=== PATIENT | female | born 1995 | race African-American/Black ===

== ENCOUNTER 2017-06-18 16:55 | Emergency (ER) | payer BC ==
[~2017-06-18] VITALS: Ht 180.3 cm; Wt 88.2 kg
[2017-06-18 17:01] VITALS: TEMP 36.5; Ht 180.3 cm; Wt 88.2 kg
[2017-06-18] MEDS ORDERED: SODIUM CHLORIDE 0.9% 1000ML 1,000 ML IV ONE (17:21)
[2017-06-18] MEDS ORDERED: SODIUM CHLORIDE 0.9% 1000ML 1,000 ML IV STA (17:21)
--- NOTE | 2017-06-18 17:21 | EMERGENCY ROOM VISIT NOTE ---
History Report prepared by Miguel: Tomás Bennett Under the Supervision of: Dr. Zheng Mann M.D. First contact with patient: 17:08 Chief Complaint: RAPID HEART RATE Stated Complaint: RAPID HEARTBEAT, BRAIN FOG, TINGLING FEET History of Present Illness The patient is a 21 year old female who presents to the Emergency Room with complaints of a rapid heart rate that began recently. Her heart rate is currently 98 bpm. She has a past medical history of iron deficiency anemia and panic attacks. Her first panic attack happened 1 month ago, and she had her second one this past weekend. She currently takes Iron supplements, but she states that she does not think it is working. While the patient was being examined, she had a small panic attack and her heart rate when up to 150. She has been experiencing chills and has felt foggy. She denies any trauma, injury, fevers, chest pain, or shortness of breath. She denies any history of thyroid dysfunction. Source of History: patient, spouse/significant other Onset: recently Position: other (Heart) Symptom Intensity: 98 Quality: other (Tachycardia) Timing: intermittent Associated Symptoms: + chills, No fevers, No chest pain, No SOB Review of Systems See HPI for pertinent positives & negatives. A total of 10 systems reviewed and were otherwise negative. Past Medical & Surgical Medical Problems: (1) Iron deficiency anemia Old medical records were reviewed. Nurse's notes were reviewed and I agree with. Family History Patient reports no known family medical history. Social History Smoking Status: Never Smoker Smokeless Tobacco Use: No Drug Use: none Marital Status: single Occupation Status: student Current/Historical Medications Scheduled Ferrous Gluconate (Iron Supplement), 324 MG PO BID Scheduled PRN Ibuprofen (Motrin), 800 MG PO Q8H PRN for Pain Allergies Coded Allergies: No Known Allergies (Unverified , 06/18/17) Physical Exam Vital Signs Date Time Temp Pulse Resp B/P (MAP) Pulse Ox O2 Delivery O2 Flow Rate FiO2 06/18/17 21:19 99 17 126/70 98 06/18/17 19:06 94 16 139/86 100 Room Air 06/18/17 17:48 97 Room Air 06/18/17 17:25 96 06/18/17 17:01 36.5 98 18 136/80 97 Room Air Physical Exam General: Non-ill appearing young female in no acute distress. Occasionally has episodes where she feels panicked and her heart rate increases. HEENT: Normal cephalic atraumatic. Pupils are equal round and reactive to light. Extraocular movements are intact. Oropharynx is pink with moist mucous membranes. No swelling of the mouth lips or tongue. Neck: Supple with a midline trachea. No meningeal signs or stiffness, no JVD or bruits. No Stridor. Suspect goiter and fullness around thyroid. Chest: Clear to auscultation bilaterally. No wheezes or rhonchi. No increased work of breathing. Heart: regular rate and rhythm. Abdomen: Soft nontender, nondistended without rebound guarding or rigidity. Extremities: No cyanosis clubbing or edema. No calf tenderness or assymetry Spine/Back. Non tender to palpation. No CVA tenderness Skin: Good turgor without rashes. Neurologic exam: Cranial nerves two through 12 are intact. Motor and sensation are intact and symmetrical throughout. Medical Decision & Procedures ER Provider Diagnostic Interpretation: Radiology results as stated below per my review and radiologist interpretation: CHEST ONE VIEW PORTABLE CLINICAL HISTORY: Atypical chest pain COMPARISON STUDY: No previous studies for comparison. FINDINGS: The cardiac and mediastinal contours are normal. There is no evidence of focal pulmonary consolidation. There is no evidence of failure. No pleural effusions are visualized.[ IMPRESSION: No active disease in the chest. Electronically signed by: Randall Pfeiffer M.D. 06/18/2017 6:25 PM Dictated Date/Time: 06/18/2017 6:25 PM Laboratory Results 06/18/17 17:30 Red Blood Count 3.90, Mean Corpuscular Volume 82.1, Mean Corpuscular Hemoglobin 28.5, Mean Corpuscular Hemoglobin Concent 34.7, Mean Platelet Volume 11.6, Neutrophils (%) (Auto) 55.2, Lymphocytes (%) (Auto) 34.2, Monocytes (%) (Auto) 8.9, Eosinophils (%) (Auto) 1.2, Basophils (%) (Auto) 0.3, Neutrophils # (Auto) 5.27, Lymphocytes # (Auto) 3.26, Monocytes # (Auto) 0.85, Eosinophils # (Auto) 0.11, Basophils # (Auto) 0.03 06/18/17 17:30 Test 06/18/17 17:30 06/18/17 17:35 06/18/17 18:51 White Blood Count 9.54 K/uL (4.8-10.8) Red Blood Count 3.90 M/uL (4.2-5.4) Hemoglobin 11.1 g/dL (12.0-16.0) Hematocrit 32.0 % (37-47) Mean Corpuscular Volume 82.1 fL (80-100) Mean Corpuscular Hemoglobin 28.5 pg (25-34) Mean Corpuscular Hemoglobin Concent 34.7 g/dl (32-36) Platelet Count 216 K/uL (130-400) Mean Platelet Volume 11.6 fL (7.4-10.4) Neutrophils (%) (Auto) 55.2 % Lymphocytes (%) (Auto) 34.2 % Monocytes (%) (Auto) 8.9 % Eosinophils (%) (Auto) 1.2 % Basophils (%) (Auto) 0.3 % Neutrophils # (Auto) 5.27 K/uL (1.4-6.5) Lymphocytes # (Auto) 3.26 K/uL (1.2-3.4) Monocytes # (Auto) 0.85 K/uL (0.11-0.59) Eosinophils # (Auto) 0.11 K/uL (0-0.5) Basophils # (Auto) 0.03 K/uL (0-0.2) RDW Standard Deviation 42.2 fL (36.4-46.3) RDW Coefficient of Variation 14.7 % (11.5-14.5) Immature Granulocyte % (Auto) 0.2 % Immature Granulocyte # (Auto) 0.02 K/uL (0.00-0.02) Anion Gap 9.0 mmol/L (3-11) Est Creatinine Clear Calc Drug Dose 138.2 ml/min Estimated GFR () 124.0 Estimated GFR (Non- 107.0 BUN/Creatinine Ratio 13.2 (10-20) Calcium Level 8.7 mg/dl (8.5-10.1) Total Bilirubin 0.1 mg/dl (0.2-1) Direct Bilirubin < 0.1 mg/dl (0-0.2) Aspartate Amino Transf (AST/SGOT) 18 U/L (15-37) Alanine Aminotransferase (ALT/SGPT) 19 U/L (12-78) Alkaline Phosphatase 109 U/L (45-117) Total Creatine Kinase 115 U/L (26-192) Creatine Kinase MB 0.6 ng/ml (0.5-3.6) Creatine Kinase MB Ratio 0.5 (0-3.0) Total Protein 8.7 gm/dl (6.4-8.2) Albumin 3.7 gm/dl (3.4-5.0) Lipase 88 U/L (73-393) Thyroid Stimulating Hormone (TSH) 0.981 uIu/ml (0.300-4.500) Bedside D-Dimer 134 ng/mlFEU (0-450) Bedside Troponin I < 0.030 ng/ml (0-0.045) Prothrombin Time 10.9 SECONDS (9.0-12.0) Prothromb Time International Ratio 1.0 (0.9-1.1) Activated Partial Thromboplast Time 29.8 SECONDS (21.0-31.0) Partial Thromboplastin Ratio 1.1 Free Thyroxine 1.06 ng/dl (0.80-1.60) Free Triiodothyronine 2.58 pg/ml (2.30-4.20) Laboratory studies as stated above per my review. Medications Administered Medications (Trade) Dose Ordered Sig/Iztel Route Start Time Stop Time Status Last Admin Dose Admin Sodium Chloride 1,000 ml @ 999 mls/hr Q1H1M STAT IV 06/18/17 17:21 06/18/17 18:21 DC 06/18/17 17:47 999 MLS/HR Sodium Chloride 1,000 ml @ 150 mls/hr Q6H40M ONCE IV 06/18/17 17:21 06/18/17 21:49 DC 06/18/17 19:07 150 MLS/HR ECG Indication: tachycardia Rate (beats per minute): 94 Rhythm: normal sinus Findings: no acute ischemic change, no ectopy, other (Normal intervals) Comparison ECG Date: no prior available ED Course 1708: Past medical records reviewed. The patient was evaluated in room A2, and a complete history and physical examination were performed. 1721: Ordered Sodium Chloride 1000 ml @ 150 mls/hr IV, Sodium Chloride 1000 ml @ 999 mls/hr IV 1802: Upon reevaluation, the patient is resting comfortable. Her heart rate is 100 bpm. 1841: She is feeling much better. The fuel verification technician is looking through her chart for abnormalities. 1953: She will be evaluated by the psych egg caser. 2100: Upon reevaluation, the patient is resting. I discussed the results and treatment plan with her. She verbalized agreement of the treatment plan. The patient was discharged home. Medical Decision Differentials include, but are not limited to; thyroid disease, anxiety, cardiac disease, pulmonary embolism, and electrolyte or metabolic abnormality. This patient comes in as described above. She's been feeling anxious and has a rapid heart rate at times. She is only mildly tachycardic however while we are drawn blood, she got very tachycardic in the 140s. She was noted to be sinus tach on the monitor. She looks well otherwise she is stable vital signs. On exam I suspect she may have a goiter. In light of this, I also had thyroid studies. Her EKG shows no ischemic changes. There is nothing to suggest WPW/ preexcitation or ischemia. Her d-dimer was within normal limits and therefore PE is highly unlikely. She has no acute electrolyte or metabolic abnormalities. Her cardiac biomarkers are not abnormal. Thyroid studies were obtained and were unremarkable. She had no further significant tachycardia beyond the episode where he joann her blood. I recommend she follow up with her regular doctor this recurs she may need further evaluation or possibly a Holter monitor rule out arrhythmia. She is feeling very anxious and did talk to the [facility] today, I did have her talk to her psychiatric egg caser as well as feels she is safe to go home she denies any suicidal ideations. She was feeling better and will be discharged home. She will return if: Worsening of symptoms, any new problems or concerns. Medication Reconcilliation Current Medication List: was personally reviewed by me Blood Pressure Screening Patient's blood pressure: Elevated blood pressure Blood pressure disposition: Elevated BP felt to be situational Impression Primary Impression: Anxiety Additional Impression: Tachycardia Scribe Attestation The scribe's documentation has been prepared under my direction and personally reviewed by me in its entirety. I confirm that the note above accurately reflects all work, treatment, procedures, and medical decision making performed by me. Departure Information Dispostion Home / Self-Care Referrals No Doctor, Assigned (PCP) Forms HOME CARE DOCUMENTATION FORM, IMPORTANT VISIT INFORMATION, WORK / SCHOOL INSTRUCTIONS Patient Instructions My [facility] Additional Instructions Rest. Drink plenty of fluids. Return if: Recurrence of symptoms, chest pain, shortness of breath, thoughts of hurting himself or others, any new problems or concerns Follow-up with your doctor and [facility] this week for recheck Problem Qualifiers
[2017-06-18 17:43] LABS: BASO % 0.3 %; BASO ABS # 0.03 K/uL (0-0.2); COMPLETE YES; EOS % 1.2 %; IG% 0.2 %; LYMPH % 34.2 %; LYMPH ABS # 3.26 K/uL (1.2-3.4); MEAN CELL VOLUME 82.1 fL (80-100); MEAN CORPUSCULAR HEMOGLOBIN 28.5 pg (25-34); MEAN CORPUSCULAR HGB CONC 34.7 g/dl (32-36); MEAN PLATELET VOLUME 11.6 fL (7.4-10.4); MONO % 8.9 %; NEUT % 55.2 %; PLATELET COUNT 216 K/uL (130-400); WHITE BLOOD COUNT 9.54 K/uL (4.8-10.8)
[2017-06-18] MEDS ORDERED: FERR324T PO (17:43)
[2017-06-18] MEDS ORDERED: IBUP-1428 PO (17:43)
[2017-06-18 17:54] LABS: POINT OF CARE TROPONIN I < 0.030 ng/ml (0-0.045)
[2017-06-18 18:04] LABS: ALT/SGPT 19 U/L (12-78); AST/SGOT 18 U/L (15-37); BLOOD UREA NITROGEN 10 mg/dl (7-18); BUN/CREATININE RATIO 13.2 (10-20); CALCIUM 8.7 mg/dl (8.5-10.1); CARBON DIOXIDE 26 mmol/L (21-32); CHLORIDE 102 mmol/L (98-107); CREATININE 0.79 mg/dl (0.60-1.20); GLUCOSE 114 mg/dl (70-99); POTASSIUM 3.9 mmol/L (3.5-5.1); SODIUM 137 mmol/L (136-145)
--- NOTE | 2017-06-18 18:26 | DIAGNOSTIC IMAGING REPORT ---
CHEST ONE VIEW PORTABLE CLINICAL HISTORY: Atypical chest pain COMPARISON STUDY: No previous studies for comparison. FINDINGS: The cardiac and mediastinal contours are normal. There is no evidence of focal pulmonary consolidation. There is no evidence of failure. No pleural effusions are visualized.[ IMPRESSION: No active disease in the chest. Electronically signed by: Randall Pfeiffer M.D. 06/18/2017 6:25 PM Dictated Date/Time: 06/18/2017 6:25 PM
[2017-06-18 18:34] LABS: ALKALINE PHOSPHATASE 109 U/L (45-117); CKMB/CK RATIO 0.5 (0-3.0); THYROID STIMULATING HORMONE 0.981 uIu/ml (0.300-4.500)
[2017-06-18 19:27] LABS: PARTIAL THROMBOPLASTIN RATIO 1.1; PROTHROMBIN TIME (PATIENT) 10.9 SECONDS (9.0-12.0)
[2017-06-18 21:19] VITALS: BP 126/70; PULSE 99; O2SAT 98
== END 2017-06-18 21:20 | disposition home or self-care (01) ==
LOC: C.EDB 16:57 → C.EDA 21:20
DX: F41.9 Anxiety disorder, unspecified (principal); R00.0 Tachycardia, unspecified; D50.9 Iron deficiency anemia, unspecified